=== PATIENT | female | born 1985 | race Caucasian/White ===

== ENCOUNTER 2021-06-09 16:16 | Emergency (ER) | payer SELFPAY ==
[2021-06-09] MEDS ORDERED: Phenylephrine 0.5% Nasal Spray 15 ML Bot NASLF ONE (17:48)
[2021-06-09] MEDS ORDERED: Aloe Vera/Sodium Chloride Gel 14.1 GM Tube NAS PRN (17:49)
--- NOTE | 2021-06-09 17:51 | EDM.PDOC ---
ED HPI GENERAL MEDICAL PROBLEM - General Chief Complaint: ENT Problem Stated Complaint: NOSE BLEED Time Seen by Provider: 06/09/21 17:35 Source of Information: Reports: Patient, RN Notes Reviewed History Limitations: Reports: No Limitations - History of Present Illness INITIAL COMMENTS - FREE TEXT/NARRATIVE: Patient is a 36-year-old female who presents to the ER for evaluation of her left-sided nosebleed. States that around 2 PM today, she developed a "severe nosebleed". States that this was x3 and episodes lasted about 45 minutes each. These were able to be stopped by themselves. States that she has a history of nosebleeds like this when she was a smaller child. Not had these for quite some time. Not making any obvious risk factors known. She got these nosebleeds to stop with a little bit of nasal packing. Patient denies any other sick-like symptoms, fever/chills, cough/shortness of breath, nausea/vomiting/diarrhea. - Related Data Allergies Allergy/AdvReac Type Severity Reaction Status Date / Time Penicillins Allergy Rash Verified 06/09/21 17:12 Home Meds: Home Meds . [No Known Home Meds] 06/09/21 [History] Past Medical History - Past Health History Medical/Surgical History: Denies Medical/Surgical History Social & Family History - Tobacco Use Tobacco Use Status *Q: Never Tobacco User Second Hand Smoke Exposure: No - Caffeine Use Caffeine Use: Reports: Coffee, Energy Drinks, Soda - Recreational Drug Use Recreational Drug Use: No ED ROS ENT - Review of Systems Review Of Systems: Comprehensive ROS is negative, except as noted in HPI. ED EXAM, ENT - Physical Exam Exam: See Below Exam Limited By: No Limitations General Appearance: Alert, WD/WN, No Apparent Distress Nose: Normal Inspection, Normal Mucousa, Dried Blood (in left nare). No: Active Bleeding Respiratory/Chest: No Respiratory Distress, Lungs Clear, Normal Breath Sounds, No Accessory Muscle Use, Chest Non-Tender Cardiovascular: Normal Peripheral Pulses, Regular Rate, Rhythm, No Edema GI/Abdominal: Normal Bowel Sounds, Soft, Non-Tender, No Distention, No Mass Extremities: Normal Inspection, Normal Capillary Refill Neurological: Alert, Oriented, Normal Cognition, No Motor/Sensory Deficits Psychiatric: Normal Affect, Normal Mood Skin: Warm, Dry, Intact, Normal Color, No Rash Course - Vital Signs Last Recorded V/S: Last Vital Signs Temp 98.0 F 06/09/21 17:11 Pulse 90 06/09/21 17:11 Resp 20 06/09/21 17:11 BP 125/99 H 06/09/21 17:11 Pulse Ox 95 06/09/21 17:11 - Orders/Labs/Meds Orders: Active Orders 24 hr Category Date Time Status Aloe Vera/Sodium Chloride [[place] Saline Nasal Gel] Med 06/09/21 17:49 Ordered 1 gm YARON ASDIRECTED PRN Medication Orders Sodium Chloride (Aloe Vera/Sodium Chloride Gel 14.1 Gm Tube) 1 gm YARON ASD IRECTED PRN PRN Reason: nosebleed Meds: Medications Generic Name Dose Route Start Last Admin Trade Name Freq PRN Reason Stop Dose Admin Sodium Chloride 1 gm 06/09/21 17:49 Aloe Vera/Sodium Chloride Gel 14.1 Gm Tube YARON ASDIRECTED PRN nosebleed Discontinued Medications Generic Name Dose Route Start Last Admin Trade Name Freq PRN Reason Stop Dose Admin Phenylephrine HCl 1 ml 06/09/21 17:48 Phenylephrine 0.5% Nasal Freeman 15 Ml Bot NASLF 06/09/21 17:49 ONETIME ONE - Re-Assessments/Exams Free Text/Narrative Re-Assessment/Exam: 06/09/21 18:01 Patient presents to the ER for her nosebleed that she had earlier today. No active bleeding at today's visit, I will give her some Ac-Synephrine for further management. Apparently we do not have the AYR saline nasal gel in stock in the ER, so she will have to get some at [facility] if needed. Departure - Departure Time of Disposition: 17:49 Disposition: Home, Self-Care 01 Condition: Good Clinical Impression: Left-sided nosebleed - Discharge Information *PRESCRIPTION DRUG MONITORING PROGRAM REVIEWED*: No *COPY OF PRESCRIPTION DRUG MONITORING REPORT IN PATIENT AGUSTÍN: No Instructions: Nosebleed, Adult, [id number] Referrals: PCP,None [Primary Care Provider] - Forms: ED Department Discharge Additional Instructions: You were evaluated in the ER today for your ongoing intermittent left-sided nosebleed. Because you are not bleeding at today's visit, there are not a lot of modalities that can be done specifically at this ER visit. General recommendations would be to use the nasal spray provided at today's visit, into the left nare 2 times a day for the next 3 days. You have been given some AYR nasal saline gel as well, you may put this on a Q-tip, and lightly coat the inside of your left nare for further moisturization. Would recommend that you try to keep your house humidified over the next few days as well while the temperatures fluctuate, as it might be somewhat dry in your house. Do not hesitate to return to the ER at any time if symptoms change or worsen. Sepsis Event Note (ED) - Focused Exam Vital Signs: Vital Signs Temp Pulse Resp BP Pulse Ox 06/09/21 17:11 98.0 F 90 20 125/99 H 95 - My Orders Last 24 Hours: My Active Orders 06/09/21 17:49 Aloe Vera/Sodium Chloride [[place] Saline Nasal Gel] 1 gm YARON ASDIRECTED PRN - Assessment/Plan Last 24 Hours: My Active Orders 06/09/21 17:49 Aloe Vera/Sodium Chloride [[place] Saline Nasal Gel] 1 gm YARON ASDIRECTED PRN
== END 2021-06-09 18:10 | disposition home or self-care (01) ==
LOC: JD.ED 16:16
DX: R04.0 Epistaxis (principal); Z88.0 Allergy status to penicillin
CPT/HCPCS: 99283; A9270

== ENCOUNTER 2022-09-25 08:31 | Emergency (ER) | payer SELFPAY ==
[2022-09-25] MEDS ORDERED: Metoclopramide 10 MG/2 ML SDV IVPUSH ONE (09:32)
[2022-09-25] MEDS ORDERED: HYDROmorphone 0.5 MG/0.5 ML Syringe IVPUSH ONE (09:32)
[2022-09-25] MEDS ORDERED: Dextrose 5%-Lactated Ringers 1,000 ML IV SCH (09:45)
== END 2022-09-25 12:11 | disposition home or self-care (01) ==
LOC: JD.ED 08:31
DX: A08.4 Viral intestinal infection, unspecified (principal); Z88.0 Allergy status to penicillin
CPT/HCPCS: 36415; 80053; 82009; 83605; 83735; 85025; 86140; 96361; 96374; 96375; 99284; J1170; J2765; J7121

== ENCOUNTER 2023-07-30 04:27 | Inpatient (IN) | payer SELFPAY ==
[~2023-07-30 04:27] MED LIST: Bupivacaine 0.25% 10 ML SDV ONE
[2023-07-30] MEDS ORDERED: Lidocaine 1% 50 ML MDV INJECT PRN (05:01)
[2023-07-30] MEDS ORDERED: Nalbuphine HCl 10 MG/ 1ML Amp IVPUSH PRN (05:01)
[2023-07-30] MEDS ORDERED: Ondansetron 4 MG/2 ML SDV IVPUSH PRN (05:01)
[2023-07-30] MEDS ORDERED: Sodium Chloride 0.9% 10 ML Syringe FLUSH PRN (05:01)
[2023-07-30] MEDS ORDERED: ceFAZolin 2 GM in Sodium Chloride 0.9% 50 ML IV ONE (05:01)
[2023-07-30] MEDS ORDERED: Oxytocin/Lactated Ringers 30 UNIT/500 ML BAG IV SCH ×2 (05:15→12:12)
[2023-07-30] MEDS ORDERED: ceFAZolin 1 GM Vial ONE (05:24)
[2023-07-30] MEDS: Lactated Ringers 1,000 ML IV SCH ×2 (05:26→09:21)
[2023-07-30 05:33] LABS: BASOPHILS ABSOLUTE AUTO 0.1 K/mm3 (0.0-0.2); BASOPHILS PERCENT AUTO 0.5 % (0.0-1.0); EOSINOPHILS ABSOLUTE AUTO 0.1 K/mm3 (0.0-0.4); EOSINOPHILS PERCENT AUTO 0.9 % (0.0-6.0); HEMATOCRIT 33.9 % (37.0-47.0); HEMOGLOBIN 11.2 gm/dl (12.0-16.0); IMMATURE GRAN ABSOLUTE AUTO 0.05 K/mm3 (0.00-0.05); IMMATURE GRAN PERCENT AUTO 0.4 % (0.0-0.4); LYMPHOCYTES ABSOLUTE AUTO 2.9 K/mm3 (1.0-4.8); MEAN CORPUSCULAR HEMOGLOBIN 26.5 pg (28.0-32.0); MEAN CORPUSCULAR VOLUME 80.1 fl (83.0-99.0); MEAN PLATELET VOLUME 11.4 fl (9.4-12.3); MONOCYTES ABSOLUTE AUTO 0.8 K/mm3 (0.0-0.8); NEUTROPHILS ABSOLUTE AUTO 7.6 K/mm3 (1.8-7.7); NEUTROPHILS PERCENT AUTO 66.2 % (41.0-71.0); PLATELET COUNT,PLT 212 K/mm3 (150-400); RED BLOOD CELL COUNT 4.23 M/mm3 (4.10-5.30)
[2023-07-30] MEDS ORDERED: ceFAZolin 1 GM in Sodium Chloride 0.9% 100 ML IV SCH (06:00)
[2023-07-30] MEDS ORDERED: fentaNYL 100 MCG/2 ML SDV EPIDUR PRN (08:03)
[2023-07-30] MEDS ORDERED: diphenhydrAMINE 50 MG/ML SDV IVPUSH PRN (08:03)
[2023-07-30] MEDS ORDERED: ePHEDrine 50 MG/ML SDV IVPUSH PRN (08:03)
[2023-07-30] MEDS ORDERED: Bupivacaine/fentaNYL/NS 100 ML Bag EPIDUR PRN (08:03)
[2023-07-30] MEDS ORDERED: Hydrocortisone Acetate 25 MG Supp RECTAL PRN (12:12)
[2023-07-30] MEDS ORDERED: Ibuprofen 600 MG Tab PO PRN (12:12)
[2023-07-30] MEDS ORDERED: Acetaminophen 325 MG Tab PO PRN (12:12)
[2023-07-30] MEDS ORDERED: Docusate Sodium 100 MG Cap PO PRN (12:12)
[2023-07-30] MEDS ORDERED: Benzocaine/Menthol 20%-0.5% Spray 78 GM Cannister TOP PRN (12:12)
[2023-07-30] MEDS ORDERED: Witch Hazel Medicated Pads 40/Jar TOP PRN (12:12)
[2023-07-30] MEDS ORDERED: ceFAZolin 1 GM in Sodium Chloride 0.9% 50 ML IV SCH (14:00)
[2023-07-30] MEDS ORDERED: Magnesium Hydroxide 400 MG/5 ML Susp 30 ML Cup PO PRN (21:00)
[2023-07-31] MEDS ORDERED: Prenatal Multivitamin with Calcium/Folic Acid/Iron Tab PO SCH (09:00)
== END 2023-07-31 14:00 | disposition home or self-care (01) | DRG 807 ==
LOC: JD.OBCHECK 04:27 → JD.OB 04:31 → JD.OBCHECK 04:34 → OBSVTOIN 11:11 → JD.OB 11:12
PROVIDERS: ADMIT Obstetrics & Gynecology; ATTEND Obstetrics & Gynecology
PROC: 10E0XZZ Delivery of Products of Conception, External Approach (ICD-10-PCS; principal; 2023-07-30)
PROC: 3E0R3BZ Introduction of Anesthetic Agent into Spinal Canal, Percutaneous Approach (ICD-10-PCS; 2023-07-30)
PROC: 00HU33Z Insertion of Infusion Device into Spinal Canal, Percutaneous Approach (ICD-10-PCS; 2023-07-30)
PROC: 0HQ9XZZ Repair Perineum Skin, External Approach (ICD-10-PCS; 2023-07-30)
DX: O42.02 Full-term premature rupture of membranes, onset of labor within 24 hours of rupture (principal); Z37.0 Single live birth; O70.0 First degree perineal laceration during delivery; O99.824 Streptococcus B carrier state complicating childbirth; Z3A.39 39 weeks gestation of pregnancy; Z88.0 Allergy status to penicillin; O26.893 Other specified pregnancy related conditions, third trimester; Z67.41 Type O blood, Rh negative; O34.211 Maternal care for low transverse scar from previous cesarean delivery; Z91.018 Allergy to other foods
CPT/HCPCS: 36415; 51702; 59025; 59409; 85025; 86592; 86850; 86900; 86901; A9270-GY; J0690; J3010; J3490; J7120; J7999